=== PATIENT | female | born 1985 | race Caucasian/White ===

== ENCOUNTER 2023-09-16 23:44 | Observation (INO) | payer OTHER ==
[2023-09-17] MEDS ORDERED: METHOCARBAMOL 500 MG TABLET ONE (00:59)
[2023-09-17] MEDS ORDERED: LIDOCAINE 4% PATCH TP ONE (01:00)
[2023-09-17] MEDS ORDERED: KETOROLAC TROMETHAMINE 30 MG/1 ML VIAL ONE (01:00)
[2023-09-17] MEDS: LIDOCAINE 5% TOPICAL PATCH TP ONE (01:15)
[2023-09-17] MEDS: KETOROLAC TROMETHAMINE 30 MG/1 ML VIAL IM ONE (01:16)
[2023-09-17] MEDS: METHOCARBAMOL 500 MG TABLET PO ONE (01:16)
[2023-09-17] MEDS ORDERED: diazePAM 5 MG TABLET ONE (03:22)
[2023-09-17] MEDS ORDERED: DEXAMETHASONE SOD PHOSPHATE 10 MG/1 ML VIAL ONE (03:22)
[2023-09-17] MEDS ORDERED: ACETAMINOPHEN 325 MG TABLET (FP) ONE (03:22)
[2023-09-17] MEDS: DEXAMETHASONE SOD PHOSPHATE 10 MG/1 ML VIAL IM ONE (03:29)
[2023-09-17] MEDS: diazePAM 5 MG TABLET PO ONE (03:30)
[2023-09-17] MEDS: ACETAMINOPHEN 500 MG TABLET (FP) PO ONE (03:30)
[2023-09-17 04:43] LABS: PH,URINE 8.5 (5.0-8.0); URINE APPEARANCE CLEAR; URINE BILIRUBIN NEGATIVE (NEGATIVE); URINE COLOR YELLOW; URINE GLUCOSE (UA) NEGATIVE (NEGATIVE); URINE KETONE NEGATIVE (NEGATIVE); URINE LEUK ESTERASE NEGATIVE (NEGATIVE); URINE NITRITE NEGATIVE (NEGATIVE); URINE PROTEIN NEGATIVE (NEGATIVE); URINE UROBILINOGEN 0.2 mg/dL (0.2-1.0)
[2023-09-17 04:44] LABS: HCG,QUALITATIVE URINE Negative
[2023-09-17] MEDS ORDERED: BUPIVACAINE HCL/PF 0.5% (5MG/ML) 10 ML VIAL ONE (04:55)
[2023-09-17] MEDS: BUPIVACAINE HCL 0.5% 250 MG/50 ML VIAL NR ONE (05:50)
[2023-09-17 07:35] LABS: HEMATOCRIT 41.6 % (32.4-45.2); HEMOGLOBIN 13.8 GM/dL (10.7-15.3); MCH 29.5 pg (25.7-33.7); MCHC 33.1 g/dl (32.0-36.0); MEAN CELL VOLUME 89.3 fl (80-96); MEAN PLT VOLUME 8.2 fl (7.5-11.1); PLATELET COUNT 394 10^3/uL (134-434); RBC 4.66 M/mm3 (3.60-5.2); RDW 13.5 % (11.6-15.6); WHITE BLOOD COUNT 14.2 K/mm3 (4.0-10.0)
[2023-09-17 07:56] LABS: POTASSIUM 3.9 mmol/L (3.5-5.1)
[2023-09-17 07:58] LABS: CALCIUM 9.6 mg/dL (8.5-10.1)
[2023-09-17 07:59] LABS: ALBUMIN 4.3 g/dl (3.4-5.0); BLOOD UREA NITROGEN 13.4 mg/dL (7-18)
[2023-09-17 08:02] LABS: CREATININE 0.6 mg/dL (0.55-1.3)
[2023-09-17 08:04] LABS: BILIRUBIN,TOTAL 0.5 mg/dL (0.2-1); TOT PROT 8.2 g/dl (6.4-8.2)
[2023-09-17] MEDS ORDERED: morphine SULFATE 4 MG/ML VIAL ONE (10:59)
[2023-09-17] MEDS: morphine SULFATE 4 MG/ML VIAL IVPUSH ONE (11:07)
[2023-09-17] MEDS: traMADol HCL 50 MG TABLET PO SCH ×2 (18:07→23:07)
[2023-09-17] MEDS: ACETAMINOPHEN 1000 MG/100 ML BAG IVPB PRN (18:10)
[2023-09-17] MEDS: ENOXAPARIN NA (PORCINE) 40 MG/0.4 ML DISP.SYRIN SQ SCH (18:44)
[2023-09-17] MEDS: PANTOPRAZOLE 40 MG TABLET PO SCH (18:47)
[2023-09-17 19:10] VITALS: BMI 25.9
[2023-09-17] MEDS: LIDOCAINE PATCH REMOVAL MC SCH (23:13)
[2023-09-18 08:20] LABS: HEMATOCRIT 37.3 % (32.4-45.2); HEMOGLOBIN 12.8 GM/dL (10.7-15.3); MCH 30.1 pg (25.7-33.7); MCHC 34.3 g/dl (32.0-36.0); MEAN CELL VOLUME 87.6 fl (80-96); MEAN PLT VOLUME 8.2 fl (7.5-11.1); PLATELET COUNT 386 10^3/uL (134-434); RBC 4.26 M/mm3 (3.60-5.2); RDW 13.6 % (11.6-15.6); WHITE BLOOD COUNT 12.1 K/mm3 (4.0-10.0)
[2023-09-18 09:01] LABS: CALCIUM 8.9 mg/dL (8.5-10.1); POTASSIUM 3.8 mmol/L (3.5-5.1)
[2023-09-18 09:02] LABS: ALBUMIN 3.6 g/dl (3.4-5.0); BLOOD UREA NITROGEN 14.6 mg/dL (7-18)
[2023-09-18 09:05] LABS: CREATININE 0.5 mg/dL (0.55-1.3)
[2023-09-18 09:07] LABS: BILIRUBIN,TOTAL 0.6 mg/dL (0.2-1); TOT PROT 7.1 g/dl (6.4-8.2)
[2023-09-18] MEDS: predniSONE 40 MG, predniSONE 10 MG PO SCH (09:38)
[2023-09-19 14:46] VITALS: BP 121/76; PULSE 81; RESP 18; TEMP 98.1
== END 2023-09-19 16:29 | disposition home or self-care (01) ==
LOC: JER 23:44 → JERBED 09-17 06:27 → J8W 09-17 15:00
PROVIDERS: ADMIT Family Medicine; ATTEND Family Medicine
PROC: 3E033NZ Introduction of Analgesics, Hypnotics, Sedatives into Peripheral Vein, Percutaneous Approach (ICD-10-PCS; principal; 2023-09-17)
PROC: 3E023GC Introduction of Other Therapeutic Substance into Muscle, Percutaneous Approach (ICD-10-PCS; 2023-09-17)
PROC: 3E0233Z Introduction of Anti-inflammatory into Muscle, Percutaneous Approach (ICD-10-PCS; 2023-09-17)
PROC: 3E033NZ Introduction of Analgesics, Hypnotics, Sedatives into Peripheral Vein, Percutaneous Approach (ICD-10-PCS; 2023-09-17)
DX: M54.30 Sciatica, unspecified side (principal); M54.9 Dorsalgia, unspecified; M54.50 Low back pain, unspecified
CPT/HCPCS: 36415; 72128-TC; 72131-TC; 80053; 81003; 84703; 85025; 85027; 86140; 96372; 96374; 96375; 97116-GP; 97161-GP; 99285-25; G0378; J0131; J1100